=== PATIENT | female | born 1990 | race Caucasian/White ===

== ENCOUNTER 2019-03-10 12:25 | Emergency (ER) | payer MEDICAID ==
--- NOTE | 2019-03-10 12:52 | EDM.PDOC ---
ED HPI GENERAL MEDICAL PROBLEM - General Chief Complaint: ENT Problem Stated Complaint: TOOTH PAIN Time Seen by Provider: 03/10/19 12:41 Source of Information: Reports: Patient History Limitations: Reports: No Limitations - History of Present Illness INITIAL COMMENTS - FREE TEXT/NARRATIVE: Patient and mother present for evaluation of left mandibular tooth pain. She has a history of extensive dental caries. She smokes. The have delayed attempting to get an evaluation by dentists. Patient is concerned she may have an abscess in her jaw. Moderately uncomfortable today. No other changes in health. Onset: Gradual Duration: Waxing/Waning Location: Reports: Face Quality: Reports: Ache, Burning Severity: Moderate Improves with: Reports: None Worsens with: Reports: None - Related Data Allergies Allergy/AdvReac Type Severity Reaction Status Date / Time oseltamivir [From Tamiflu] Allergy Rash Verified 03/10/19 12:44 Home Meds: Home Meds FLUoxetine HCl [Fluoxetine] 80 mg PO DAILY 03/10/19 [History] Haloperidol [Haldol] 20 mg PO DAILY 03/10/19 [History] traZODone 150 mg PO DAILY 03/10/19 [History] ED ROS ENT - Review of Systems Review Of Systems: See Below Constitutional: Reports: No Symptoms HEENT: Reports: Other (Left mandibular tooth pain.) ED EXAM, ENT - Physical Exam Exam: See Below Exam Limited By: No Limitations General Appearance: Alert Mouth/Throat: Dental Pain, Dental Tenderness. No: Gum Swelling, Lip Swelling, Oral Ulcers Neck: No: Lymphadenopathy (R), Lymphadenopathy (L) Cardiovascular: Tachycardia Course - Vital Signs Last Recorded V/S: Last Vital Signs Temp 37.5 C 03/10/19 12:47 Pulse 100 03/10/19 12:47 Resp 17 03/10/19 12:47 BP 129/86 03/10/19 12:47 Pulse Ox 94 L 03/10/19 12:47 - Re-Assessments/Exams Free Text/Narrative Re-Assessment/Exam: 03/10/19 13:22 Discussed stopping smoking as a means of improving oral health although that doesn't seem likely. The only thing that will decay situation will be extractions or other restorative care. I do not see or palpate an abscess at this time. Given the amount of decay and she may have an infection irritating the nerve roots however. Prescriptions sent for amoxicillin 500 mg #20 one; indomethacin 25 mg, 15 tablets; both use as directed. We discussed the use of sugar-free, or dental wax over the exposed nerve roots. Recommend they get an evaluation from community dentist of their choice in the near term. Departure - Departure Time of Disposition: 13:06 Disposition: Home, Self-Care 01 Condition: Good Clinical Impression: Dental caries - Discharge Information *PRESCRIPTION DRUG MONITORING PROGRAM REVIEWED*: Not Applicable *COPY OF PRESCRIPTION DRUG MONITORING REPORT IN PATIENT TAO: Not Applicable Instructions: Preventive Dental Care, Adult Referrals: PCP,None [Primary Care Provider] - Forms: ED Department Discharge Additional Instructions: Use sugar-free gum or dental wax to cover the exposed surface of tooth nerves. Start amoxicillin antibiotic today. Use indomethacin anti-inflammatory medication. Recommend stopping smoking for the long-term health of her gums and teeth. Follow-up with dentist of choice as discussed.
== END 2019-03-10 13:12 | disposition home or self-care (01) ==
LOC: JP.ED 12:25
DX: K02.9 Dental caries, unspecified (principal); Z88.1 Allergy status to other antibiotic agents; Z79.899 Other long term (current) drug therapy
CPT/HCPCS: 99282

== ENCOUNTER 2019-04-10 21:34 | Emergency (ER) | payer MEDICAID ==
--- NOTE | 2019-04-10 22:44 | EDM.PDOC ---
ED HPI GENERAL MEDICAL PROBLEM - General Chief Complaint: ENT Problem Stated Complaint: TOOTHACHE Time Seen by Provider: 04/10/19 22:37 Source of Information: Reports: Patient, Family, Old Records, RN Notes Reviewed History Limitations: Reports: No Limitations - History of Present Illness INITIAL COMMENTS - FREE TEXT/NARRATIVE: 28-year-old female presents emergency department today complaint of dental caries and pain, she was evaluated on 518 same complaints she now has a dentist appointment on Left Lower Jaw Pain Score (Numeric/FACES): 0 - Related Data Allergies Allergy/AdvReac Type Severity Reaction Status Date / Time oseltamivir [From Tamiflu] Allergy Rash Verified 04/10/19 22:30 Home Meds: Home Meds FLUoxetine HCl [Fluoxetine] 80 mg PO DAILY 03/10/19 [History] Haloperidol [Haldol] 20 mg PO DAILY 03/10/19 [History] traZODone 150 mg PO DAILY 03/10/19 [History] ARIPiprazole [Aripiprazole] 30 mg PO DAILY 04/10/19 [History] Past Medical History HEENT History: Reports: Impaired 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: Psychiatric History: Reports: Depression, Psych Hospitalization(s), Schizophrenia Endocrine/Metabolic History: Reports: Obesity/BMI 30+ - Past Surgical History Head Surgeries/Procedures: Reports: None GI Surgical History: Reports: Cholecystectomy Endocrine Surgical History: Reports: None Social & Family History - Family History Family Medical History: Noncontributory - Tobacco Use Smoking Status *Q: Current Every Day Smoker Years of Tobacco use: 13 Packs/Tins Daily: 0.5 Second Hand Smoke Exposure: Yes - Caffeine Use Caffeine Use: Reports: Coffee - Recreational Drug Use Recreational Drug Use: No ED ROS ENT - Review of Systems Review Of Systems: See Below Constitutional: Denies: Fever, Chills HEENT: Reports: Dental Pain, Throat Pain Respiratory: Reports: No Symptoms Cardiovascular: Reports: No Symptoms ED EXAM, ENT - Physical Exam Exam: See Below Text/Narrative:: Mouth mucosa is moist and pink no erythema or exudate known soft palate on is midline uvula is midline dentition is poor there is tenderness around her #18 Exam Limited By: No Limitations General Appearance: Alert, WD/WN, No Apparent Distress Respiratory/Chest: No Respiratory Distress Course - Vital Signs Last Recorded V/S: Last Vital Signs Temp 97.6 F 04/10/19 22:31 Pulse 96 04/10/19 22:31 Resp 13 04/10/19 22:31 BP 151/85 H 04/10/19 22:31 Pulse Ox 99 04/10/19 22:31 Departure - Departure Time of Disposition: 22:43 Disposition: Home, Self-Care 01 Condition: Fair Clinical Impression: Dental abscess - Discharge Information Instructions: Dental Abscess Referrals: Juanis Ferrari MD [Primary Care Provider] - Additional Instructions: Take full course of antibiotics, use Tylenol or Motrin as needed for pain control, keep dentist appointment on the at this month, call or return to the emergency department worsening of symptoms - Assessment/Plan Plan: Assessment Acuity = acute Site and laterality = dental abscess Etiology = bacterial cause Manifestations = pain Location of injury = Home Lab values = none Plan Amoxicillin 500 mg by mouth 3 times a day 10 days he didn't appointment on the of this month use ibuprofen or Tylenol as needed This note was dictated using [email or web address] voice recognition software please call with any questions on syntax or grammar.
== END 2019-04-10 22:54 | disposition home or self-care (01) ==
LOC: JP.ED 21:34
DX: K04.7 Periapical abscess without sinus (principal); F17.210 Nicotine dependence, cigarettes, uncomplicated; Z88.8 Allergy status to other drugs, medicaments and biological substances; Z79.899 Other long term (current) drug therapy
CPT/HCPCS: 99282

== ENCOUNTER 2025-04-23 18:56 | Emergency (ER) | payer MEDICAID ==
[2025-04-23 20:17] LABS: BASOPHILS ABSOLUTE AUTO 0.06 K/uL (0.00-0.10); BASOPHILS PERCENT AUTO 0.5 % (0.1-1.3); EOSINOPHILS ABSOLUTE AUTO 0.03 K/uL (0.00-0.40); EOSINOPHILS PERCENT AUTO 0.2 % (0.0-5.4); IMMATURE GRAN ABSOLUTE AUTO 0.04 K/uL (0.00-0.23); IMMATURE GRAN PERCENT AUTO 0.3 % (0.0-0.7); LYMPHOCYTES ABSOLUTE AUTO 2.52 K/uL (0.8-3.3); LYMPHOCYTES PERCENT AUTO 19.4 % (11.4-47.7); MONOCYTES ABSOLUTE AUTO 0.59 K/uL (0.20-0.90); MONOCYTES PERCENT AUTO 4.5 % (3.3-12.6); NEUTROPHILS ABSOLUTE AUTO 9.78 K/uL (1.0-7.6); NEUTROPHILS PERCENT AUTO 75.1 % (40.0-78.1); PLATELET COUNT,PLT 352 K/uL (130-375); RED BLOOD CELL COUNT 4.85 M/uL (3.77-5.24); WHITE BLOOD CELL COUNT,WBC 13.0 K/uL (3.2-11.0)
[2025-04-23 20:45] LABS: A/G RATIO 0.9 (1.2-2.2); ALANINE AMINOTRANSFERASE,ALT 35 U/L (12-78); ASPARTATE AMNIOTRANSFERASE,AST 23 U/L (15-37); BILIRUBIN TOTAL 0.3 mg/dL (0.2-1.0); BLOOD UREA NITROGEN,BUN 10 mg/dL (7-18); CARBON DIOXIDE,CO2 27 mmol/L (21-32); CHLORIDE,CL 101 mmol/L (100-108); CREATININE 0.9 mg/dL (0.6-1.0); EST CRCL DRUG DOSING (CG) 78.51 mL/min; ESTIMATED GFR 86 mL/min (>60); GLUCOSE RANDOM 112 mg/dL (74-106); POTASSIUM,K 3.6 mmol/L (3.6-5.2); PROTEIN TOTAL,TP 7.1 g/dL (6.4-8.2); SODIUM,NA 138 mmol/L (140-148); TROPONIN I HIGH SENSITIVITY 6.2 pg/mL (<=60.3)
== END 2025-04-23 21:55 | disposition home or self-care (01) ==
LOC: JP.ED 18:56
DX: S06.9X9A Unspecified intracranial injury with loss of consciousness of unspecified duration, initial encounter (principal); S91.114A Laceration without foreign body of right lesser toe(s) without damage to nail, initial encounter; F17.210 Nicotine dependence, cigarettes, uncomplicated; Z88.8 Allergy status to other drugs, medicaments and biological substances; Z79.899 Other long term (current) drug therapy; Z86.16 Personal history of COVID-19; W22.8XXA Striking against or struck by other objects, initial encounter; Y93.89 Activity, other specified
CPT/HCPCS: 12001; 36415; 70450; 70486; 73110-26-LT; 73110-LT; 73630-26-RT; 73630-RT; 80053; 83605; 84484; 85025; 93005; 93010; 99283; 99284